=== PATIENT | male | born 1980 | race Caucasian/White ===

== ENCOUNTER 2018-12-25 13:48 | Emergency (ER) | payer BC, OTHER ==
[~2018-12-25] VITALS: Ht 182.9 cm; Wt 79.4 kg
[2018-12-25] MEDS ORDERED: METOPROLOL SUCC25 MG PO (14:39)
[2018-12-25] MEDS ORDERED: KEFLEX500 MG PO (14:43)
== END 2018-12-25 15:45 | disposition home or self-care (01) ==
LOC: ED 13:48
DX: I80.8 Phlebitis and thrombophlebitis of other sites (principal); Z88.1 Allergy status to other antibiotic agents; Z79.899 Other long term (current) drug therapy
CPT/HCPCS: 93971; 99283-25